=== PATIENT | male | born 1995 | race Caucasian/White ===

== ENCOUNTER 2023-04-12 12:15 | Emergency (ER) | payer OTHER ==
[~2023-04-12] VITALS: Ht 177.8 cm; Wt 81.6 kg
== END 2023-04-12 17:07 | disposition home or self-care (01) ==
LOC: ER 12:15
DX: M54.2 Cervicalgia (principal); R51.9 Headache, unspecified; M79.605 Pain in left leg; M79.604 Pain in right leg; R10.9 Unspecified abdominal pain; V49.88XA Car occupant (driver) (passenger) injured in other specified transport accidents, initial encounter; Y93.89 Activity, other specified; Y92.488 Other paved roadways as the place of occurrence of the external cause; Y99.8 Other external cause status